=== PATIENT | female | born 1990 | race Caucasian/White ===

== ENCOUNTER 2017-04-05 10:12 | Emergency (ER) | payer MEDICAID ==
[~2017-04-05] VITALS: Ht 165.1 cm; Wt 60.7 kg
[2017-04-05 10:14] VITALS: BP 148/89
[2017-04-05 13:22] LABS: T4 FREE 1.38 ng/dL (0.76-1.46)
== END 2017-04-05 13:40 | disposition home or self-care (01) ==
LOC: ER 10:13
DX: R00.2 Palpitations (principal); R42 Dizziness and giddiness; Z73.3 Stress, not elsewhere classified; F32.9 Major depressive disorder, single episode, unspecified
CPT/HCPCS: 36415; 84439; 84443; 93005; 99285

== ENCOUNTER 2024-02-09 08:26 | Emergency (ER) | payer MEDICAID ==
[~2024-02-09] VITALS: Ht 170.2 cm; Wt 64.0 kg
[2024-02-09 08:49] VITALS: O2SAT 100
[2024-02-09 10:38] LABS: CLARITY URINE CLOUDY (CLEAR); COLOR URINE YELLOW (YELLOW); GLUCOSE URINE NEGATIVE (NEGATIVE); KETONES URINE NEGATIVE (NEGATIVE); LEUKOCYTE ESTERASE URINE 3+ (NEGATIVE); NITRITE URINE NEGATIVE (NEGATIVE); OCCULT BLOOD URINE TRACE (NEGATIVE); PROTEIN URINE NEGATIVE (NEGATIVE); SPECIFIC GRAVITY URINE 1.004 (1.005-1.030); UROBILINOGEN URINE 0.2 E.U./dL (0.2-1.0)
[2024-02-09 10:48] LABS: SQUAMOUS EPITHELIAL CELL URINE 2+ /lpf (RARE/1+); WBC URINE TNTC /hpf (0-2)
[2024-02-09 10:49] LABS: BACTERIA URINE 2+; RBC URINE 0-2 /hpf (0-2)
[2024-02-09] MEDS ORDERED: METR-167 MT (13:27)
[2024-02-09] MEDS ORDERED: CEPH500T MT (13:27)
[2024-02-09] MEDS ORDERED: FLUC100T MT (13:27)
[2024-02-09 13:54] VITALS: BP 108/72; PULSE 58; RESP 18; TEMP 98.3
== END 2024-02-09 13:58 | disposition home or self-care (01) ==
LOC: ER 08:26
DX: B37.49 Other urogenital candidiasis (principal); N76.0 Acute vaginitis; I10 Essential (primary) hypertension; Z98.890 Other specified postprocedural states
CPT/HCPCS: 81003; 81025; 87086; 87186; 87210; 87077; 99284; Z7610